=== PATIENT | female | born 1995 | race Caucasian/White ===

== ENCOUNTER → 2016-07-28 | Outpatient (CLI) | payer BC, MEDICAID ==
[2016-07-28 15:59] LABS: CHLORIDE,CL 105 mmol/L (98-110); SODIUM,NA 138 mmol/L (136-146)
== END ==
LOC: MW.CHIM 15:04
PROVIDERS: ATTEND Internal Medicine
DX: K52.9 Noninfective gastroenteritis and colitis, unspecified (principal); R10.9 Unspecified abdominal pain
CPT/HCPCS: 36415; 80053; 84443; 85025; 86677

== ENCOUNTER 2021-07-07 18:44 | Emergency (ER) | payer BC, OTHER ==
[2021-07-07] MEDS: Sodium Chloride 0.9% 1,000 ML IV ONE (19:25)
[2021-07-07] MEDS: Ondansetron 4 MG/2 ML SDV IVPUSH ONE (19:31)
[2021-07-07] MEDS: Ketorolac 30 MG/ML SDV IVPUSH ONE (19:31)
[2021-07-07 19:48] LABS: BLOOD UREA NITROGEN,BUN 11 mg/dL (7.0-18.0); CARBON DIOXIDE,CO2 25.7 mmol/L (21.0-32.0); CHLORIDE,CL 102 mmol/L (98-107); GLUCOSE RANDOM 131 mg/dL (74-106); LIPASE 67 U/L (73-393); POTASSIUM,K 3.9 mmol/L (3.5-5.1); SODIUM,NA 140 mmol/L (136-145)
[2021-07-07] MEDS: Iopamidol 755 MG/ML 500 ML Multipack Bottle IVPUSH STA (20:38)
[2021-07-07 21:48] VITALS: BP 117/69; PULSE 62
== END 2021-07-07 21:54 | disposition home or self-care (01) ==
LOC: MW.ED 18:44
DX: R10.84 Generalized abdominal pain (principal); R10.31 Right lower quadrant pain; Z88.2 Allergy status to sulfonamides
CPT/HCPCS: 36415; 74177; 80053; 81003; 81025; 83690; 85025; 96374; 96375; 99284; J1885; J2405; J7030; Q9967

== ENCOUNTER 2024-04-20 19:10 | Inpatient (IN) | payer BC ==
[2024-04-20] MEDS ORDERED: NIFEdipine 10 MG Cap PO PRN (19:40)
[2024-04-20] MEDS ORDERED: Sodium Chloride 0.9% 10 ML Syringe FLUSH PRN (19:43)
[2024-04-20] MEDS ORDERED: Sodium Chloride 0.9% 20 ML SDV IV PRN (19:43)
[2024-04-20] MEDS ORDERED: Sodium Chloride 0.9% 2.5 ML Syringe FLUSH PRN (19:43)
[2024-04-20] MEDS ORDERED: Calcium Gluconate 10% 1 GM/10 ML SDV IV PRN (19:43)
[2024-04-20] MEDS ORDERED: Labetalol 100 MG/20 ML MDV ONE (19:51)
[2024-04-20] MEDS: Labetalol 100 MG/20 ML MDV IVPUSH ONE (19:58)
[2024-04-20] MEDS: Lactated Ringers 1,000 ML IV SCH (20:00)
[2024-04-20] MEDS: Magnesium Sulfate/Water Premix 4 GM in Premix Bag 1 BAG IV ONE (20:10)
[2024-04-20] MEDS ORDERED: Citric Acid/Sodium Citrate Solution 30 ML Cup PO ONE (20:27)
[2024-04-20] MEDS ORDERED: Ropivacaine 0.5% 5 MG/ML 30 ML SDV ONE (20:27)
[2024-04-20] MEDS ORDERED: Morphine PF 10 MG/10 ML SDV ONE (20:27)
[2024-04-20] MEDS ORDERED: Ondansetron 4 MG Tab.DIS PO PRN (20:27)
[2024-04-20] MEDS ORDERED: ceFAZolin 1 GM Vial ONE (20:27)
[2024-04-20] MEDS ORDERED: Methylergonovine 0.2 MG/1 ML Amp IM PRN (20:27)
[2024-04-20] MEDS ORDERED: EPINEPHrine 1 MG/1 ML Amp ONE (20:27)
[2024-04-20] MEDS ORDERED: Ketorolac 30 MG/ML SDV ONE (20:27)
[2024-04-20] MEDS ORDERED: Ondansetron 4 MG/2 ML SDV ONE (20:27)
[2024-04-20] MEDS ORDERED: Oxytocin 10 Units/1 ML SDV ONE (20:27)
[2024-04-20] MEDS ORDERED: Misoprostol 200 MCG Tab RECTAL PRN (20:27)
[2024-04-20] MEDS ORDERED: Bupivacaine 0.25% 30 ML SDV ONE (20:27)
[2024-04-20] MEDS ORDERED: fentaNYL 100 MCG/2 ML SDV ONE (20:27)
[2024-04-20] MEDS ORDERED: ceFAZolin 2 GM in Sodium Chloride 0.9% 50 ML IV ONE (20:27)
[2024-04-20] MEDS ORDERED: Phenylephrine HCl In 0.9% NaCl 1 MG/10 ML Syringe ONE ×3 (20:28→21:34)
[2024-04-20] MEDS ORDERED: Oxytocin/0.9 % Sodium Chloride 30 UNIT/500 ML BAG IV SCH (20:30)
[2024-04-20] MEDS: Magnesium Sulfate/Water Premix 20 GM/500 ML BAG IV SCH (20:35)
[2024-04-20] MEDS ORDERED: Naloxone 0.4 MG/ML SDV IVPUSH PRN (20:42)
[2024-04-20] MEDS ORDERED: Morphine 2 MG/ML SYRINGE IVPUSH PRN (20:42)
[2024-04-20] MEDS ORDERED: Metoclopramide 10 MG/2 ML SDV IVPUSH PRN (20:42)
[2024-04-20] MEDS ORDERED: Phenylephrine HCl In 0.9% NaCl 1 MG/10 ML Syringe IVPUSH PRN (20:42)
[2024-04-20] MEDS ORDERED: ePHEDrine 50 MG/ML SDV IM PRN (20:42)
[2024-04-20] MEDS ORDERED: fentaNYL 100 MCG/2 ML SDV IVPUSH PRN (20:42)
[2024-04-20] MEDS ORDERED: fentaNYL 50 MCG/ML SDV IVPUSH PRN (20:42)
[2024-04-20] MEDS ORDERED: Ondansetron 4 MG/2 ML SDV IVPUSH PRN ×2 (20:42)
[2024-04-20] MEDS ORDERED: Nalbuphine 10 MG/1 ML Vial IVPUSH PRN (20:42)
[2024-04-20] MEDS ORDERED: Albuterol 0.083% 2.5 MG/3 ML Neb Soln NEB PRN (20:42)
[2024-04-20] MEDS ORDERED: HYDROmorphone 1 MG/ML Syringe IVPUSH PRN (20:42)
[2024-04-20 20:57] LABS: A/G RATIO 0.6 (0.9-1.6); ALBUMIN 2.4 g/dL (3.4-5.0); BILIRUBIN TOTAL 0.2 mg/dL (0.2-1.0); CALCIUM 8.7 mg/dL (8.5-10.1); CARBON DIOXIDE,CO2 22.1 mmol/L (21.0-32.0); EST CRCL DRUG DOSING (CG) 59.62 mL/min; MAGNESIUM 1.9 mg/dL (1.8-2.4); PROTEIN TOTAL,TP 6.3 g/dL (6.4-8.2); URIC ACID 8.2 mg/dL (2.6-7.2)
[2024-04-20 20:59] LABS: HEMATOCRIT 38.9 % (37.0-47.0); HEMOGLOBIN 13.8 g/dL (12.0-16.0); MEAN CORPUSCULAR HEMOGLOBIN 30.1 pg (28.0-32.0); MEAN CORPUSCULAR HGB CONC 35.5 g/dL (32.0-36.0); MEAN CORPUSCULAR VOLUME 84.7 fL (83.0-99.0); MEAN PLATELET VOLUME 12.6 fL (9.4-12.3); NRBC ABSOLUTE 0.02 K/uL (0.00-0.02); NRBC PERCENT 0.2 /100WBC (0.0-0.2); PLATELET COUNT,PLT 182 K/uL (150-400); RED BLOOD CELL COUNT 4.59 M/uL (4.10-5.30); WHITE BLOOD CELL COUNT,WBC 12.62 K/uL (3.9-11.3)
[2024-04-20] MEDS ORDERED: Lidocaine 2% 5 ML SDV ONE (21:25)
[2024-04-20] MEDS ORDERED: Famotidine 20 MG Tab PO PRN (22:08)
[2024-04-20] MEDS ORDERED: Bisacodyl 10 MG Supp RECTAL PRN (22:08)
[2024-04-20] MEDS ORDERED: Aluminum Hydroxide/Magnesium Hydroxide/Simethicone Susp 30 ML Cup PO PRN (22:08)
[2024-04-20] MEDS ORDERED: diphenhydrAMINE 25 MG Cap PO PRN (22:08)
[2024-04-20] MEDS ORDERED: Sennosides 8.6 MG Tab PO PRN (22:08)
[2024-04-20] MEDS ORDERED: Simethicone 80 MG Tab.Chew PO PRN (22:08)
[2024-04-20] MEDS ORDERED: Measles, Mumps & Rubella Vaccine 0.5 ML SDV SUBCUT ONE (22:08)
[2024-04-20] MEDS ORDERED: Oxytocin 10 Units/1 ML SDV IM PRN (22:08)
[2024-04-20] MEDS ORDERED: Lanolin 100% Cream 7 GM Tube TOP PRN (22:08)
[2024-04-20 22:40] LABS: HEMATOCRIT 36.7 % (37.0-47.0); HEMOGLOBIN 12.8 g/dL (12.0-16.0); MEAN CORPUSCULAR HEMOGLOBIN 30.4 pg (28.0-32.0); MEAN CORPUSCULAR HGB CONC 34.9 g/dL (32.0-36.0); MEAN CORPUSCULAR VOLUME 87.2 fL (83.0-99.0); MEAN PLATELET VOLUME 12.2 fL (9.4-12.3); PLATELET COUNT,PLT 164 K/uL (150-400); RED BLOOD CELL COUNT 4.21 M/uL (4.10-5.30)
[2024-04-20 23:08] LABS: INR 0.99 (0.86-1.11)
[2024-04-20 23:18] LABS: APPEARANCE,URINE CLEAR; BILIRUBIN,URINE NEGATIVE (NEGATIVE); COLOR,URINE YELLOW; GLUCOSE,URINE NEGATIVE (NEGATIVE); KETONES,URINE NEGATIVE (NEGATIVE); LEUKOCYTE ESTERASE,URINE NEGATIVE (NEGATIVE); NITRITE,URINE NEGATIVE (NEGATIVE); OCCULT BLOOD,URINE SMALL (NEGATIVE); PROTEIN,URINE 30 mg/dL (NEGATIVE); UROBILINOGEN,URINE 0.2 EU/dL (<2.0)
[2024-04-20 23:24] LABS: BACTERIA,URINE FEW (NEGATIVE); MUCUS,URINE NOT SEEN (NONE-MOD); SQUAMOUS EPITHELIAL CELLS,UR FEW; WBC,URINE 0-2 (0-5/HPF)
[2024-04-20] MEDS: Acetaminophen 1,000 MG in Premix Bag 1 BAG IV SCH (23:30)
[2024-04-20] MEDS: diphenhydrAMINE 50 MG/ML SDV IVPUSH PRN (23:46)
[2024-04-21 07:04] LABS: HEMATOCRIT 33.5 % (37.0-47.0); HEMOGLOBIN 11.8 g/dL (12.0-16.0); MEAN CORPUSCULAR HEMOGLOBIN 30.3 pg (28.0-32.0); MEAN CORPUSCULAR HGB CONC 35.2 g/dL (32.0-36.0); MEAN CORPUSCULAR VOLUME 86.1 fL (83.0-99.0); PLATELET COUNT,PLT 160 K/uL (150-400); RED BLOOD CELL COUNT 3.89 M/uL (4.10-5.30); WHITE BLOOD CELL COUNT,WBC 23.68 K/uL (3.9-11.3)
[2024-04-21 07:23] LABS: A/G RATIO 0.5 (0.9-1.6); BILIRUBIN TOTAL 0.3 mg/dL (0.2-1.0); CALCIUM 7.3 mg/dL (8.5-10.1); CARBON DIOXIDE,CO2 21.1 mmol/L (21.0-32.0); CREATININE 1.1 mg/dL (0.6-1.0); EST CRCL DRUG DOSING (CG) 54.2 mL/min; POTASSIUM,K 5.5 mmol/L (3.5-5.1); PROTEIN TOTAL,TP 5.7 g/dL (6.4-8.2)
[2024-04-21] MEDS: Ferrous Sulfate 325 MG Tab PO SCH (07:48)
[2024-04-21] MEDS: Docusate Sodium 100 MG Cap PO SCH (08:58)
[2024-04-21] MEDS: Ibuprofen 800 MG Tab PO PRN (22:23)
[2024-04-22] MEDS: oxyCODONE 5 MG Tab PO PRN (00:04)
[2024-04-22 06:00] LABS: HEMATOCRIT 33.1 % (37.0-47.0); HEMOGLOBIN 11.1 g/dL (12.0-16.0); MEAN CORPUSCULAR HEMOGLOBIN 29.4 pg (28.0-32.0); MEAN CORPUSCULAR HGB CONC 33.5 g/dL (32.0-36.0); MEAN CORPUSCULAR VOLUME 87.8 fL (83.0-99.0); MEAN PLATELET VOLUME 11.3 fL (9.4-12.3); PLATELET COUNT,PLT 187 K/uL (150-400); RED BLOOD CELL COUNT 3.77 M/uL (4.10-5.30); WHITE BLOOD CELL COUNT,WBC 18.16 K/uL (3.9-11.3)
[2024-04-22] MEDS: Acetaminophen/oxyCODONE 325-5 MG Tab PO PRN (08:31)
[2024-04-22 11:54] LABS: A/G RATIO 0.5 (0.9-1.6); ALBUMIN 2.1 g/dL (3.4-5.0); BILIRUBIN TOTAL 0.3 mg/dL (0.2-1.0); CALCIUM 6.8 mg/dL (8.5-10.1); CARBON DIOXIDE,CO2 27.1 mmol/L (21.0-32.0); EST CRCL DRUG DOSING (CG) 59.62 mL/min; POTASSIUM,K 4.4 mmol/L (3.5-5.1); PROTEIN TOTAL,TP 6.4 g/dL (6.4-8.2)
[2024-04-22 15:23] VITALS: BP 135/85; PULSE 70
== END 2024-04-22 17:07 | disposition home or self-care (01) | DRG 540 ==
LOC: MW.OB 19:10 → MW.OBCHECK 19:10 → MW.OB 19:43 → OBSVTOIN 21:16 → MW.OB 04-21 02:25
PROVIDERS: ADMIT Obstetrics & Gynecology; ATTEND Obstetrics & Gynecology
PROC: 10D00Z1 Extraction of Products of Conception, Low, Open Approach (ICD-10-PCS; principal; 2024-04-20 21:00)
DX: O45.93 Premature separation of placenta, unspecified, third trimester (principal); O14.14 Severe pre-eclampsia complicating childbirth; O26.643 Intrahepatic cholestasis of pregnancy, third trimester; K76.89 Other specified diseases of liver; O99.344 Other mental disorders complicating childbirth; O76 Abnormality in fetal heart rate and rhythm complicating labor and delivery; E78.79 Other disorders of bile acid and cholesterol metabolism; Z3A.36 36 weeks gestation of pregnancy; Z37.0 Single live birth; Z88.2 Allergy status to sulfonamides
CPT/HCPCS: 36415; 59025; 80053; 81001; 83615; 83735; 84550; 85027; 85384; 85610; 85730; 86850; 86900; 86901; A9270-GY; J0131; J0171; J0665; J0690; J1100; J1200; J1885; J1920; J2274; J2371; J2405; J2590; J2795; J3010; J3475; J3490; J7120

== ENCOUNTER 2025-03-03 13:18 | Emergency (ER) | payer SELFPAY ==
[2025-03-03 15:25] VITALS: BP 122/67; PULSE 97
== END 2025-03-03 15:25 | disposition home or self-care (01) ==
LOC: MW.ED 13:18
DX: T14.8XXA Other injury of unspecified body region, initial encounter (principal); Z88.2 Allergy status to sulfonamides; Z79.899 Other long term (current) drug therapy
CPT/HCPCS: 71046; 71046-26; 99283